=== PATIENT | male | born 1935 | race Caucasian/White ===

== ENCOUNTER 2018-10-10 11:39 | Emergency (ER) | payer OTHER ==
[~2018-10-10] VITALS: Ht 177.8 cm; Wt 90.7 kg
[~2018-10-10 11:39] MED LIST: ACETAMINOPHEN-1 EAC1 PO; ALLOPURINOL 30300 M2 PO; FLEXERIL PO; FLOMAX0.4 MG PO; GEMFIBROZIL 60600 MG PO; HYDROCODONE-APA1 TA1 PO; KLOR-CON 1010 MEQ PO; LEVOTHYROXINE0.05 MG PO; LISINOPRIL-HCT1 EACH PO; PRILOSEC20 MG PO; PRINIVIL10 MG PO; PROAIR HFA8.5 GM; SIMVASTATIN40 MG PO; TESTIM5 GM TD
[2018-10-10 14:21] VITALS: BP 146/74
== END 2018-10-10 14:22 | disposition home or self-care (01) ==
LOC: M.ERS 11:39
DX: M25.511 Pain in right shoulder (principal); I10 Essential (primary) hypertension; Z88.0 Allergy status to penicillin; Z88.5 Allergy status to narcotic agent; Z87.442 Personal history of urinary calculi

== ENCOUNTER 2021-03-08 05:38 | Emergency (ER) | payer OTHER ==
[~2021-03-08] VITALS: Ht 175.3 cm; Wt 85.7 kg
[2021-03-08 06:52] VITALS: BP 116/72
== END 2021-03-08 06:53 | disposition home or self-care (01) ==
LOC: M.ERS 05:38
DX: I83.891 Varicose veins of right lower extremity with other complications (principal); I10 Essential (primary) hypertension; Z88.0 Allergy status to penicillin; Z88.8 Allergy status to other drugs, medicaments and biological substances; Z79.899 Other long term (current) drug therapy; Z98.890 Other specified postprocedural states; Z87.442 Personal history of urinary calculi

== ENCOUNTER 2021-07-19 07:59 | Emergency (ER) | payer OTHER ==
[~2021-07-19] VITALS: Ht 177.8 cm; Wt 90.7 kg
[2021-07-19] MEDS ORDERED: DOXYCYCLINE 10100 M2 PO (11:24)
[2021-07-19 11:35] VITALS: BP 147/87
== END 2021-07-19 11:36 | disposition home or self-care (01) ==
LOC: M.ERS 07:59
DX: S02.2XXA Fracture of nasal bones, initial encounter for closed fracture (principal); S01.21XA Laceration without foreign body of nose, initial encounter; I10 Essential (primary) hypertension; Z79.899 Other long term (current) drug therapy; Z88.0 Allergy status to penicillin; W01.0XXA Fall on same level from slipping, tripping and stumbling without subsequent striking against object, initial encounter; Y93.89 Activity, other specified; Y92.89 Other specified places as the place of occurrence of the external cause; Y99.8 Other external cause status

== ENCOUNTER 2021-07-19 17:20 | Emergency (ER) | payer OTHER ==
[~2021-07-19] VITALS: Ht 177.8 cm; Wt 90.7 kg
[~2021-07-19 17:20] MED LIST changes: +DOXYCYCLINE 10100 M2 PO
[2021-07-19 17:25] VITALS: BP 162/106
== END 2021-07-19 18:14 | disposition home or self-care (01) ==
LOC: M.ERS 17:20
DX: R04.0 Epistaxis (principal); I10 Essential (primary) hypertension; Z98.890 Other specified postprocedural states; Z87.442 Personal history of urinary calculi; Z79.2 Long term (current) use of antibiotics; Z79.899 Other long term (current) drug therapy; Z88.8 Allergy status to other drugs, medicaments and biological substances; Z88.0 Allergy status to penicillin

== ENCOUNTER 2021-08-30 11:19 | Emergency (ER) | payer OTHER ==
[~2021-08-30] VITALS: Ht 177.8 cm; Wt 90.7 kg
[2021-08-30] MEDS ORDERED: TESSALON PERLE100 MG PO (13:00)
[2021-08-30 13:07] VITALS: BP 145/80
== END 2021-08-30 13:07 | disposition home or self-care (01) ==
LOC: M.ERS 11:19
DX: J40 Bronchitis, not specified as acute or chronic (principal); B34.9 Viral infection, unspecified; I10 Essential (primary) hypertension; Z79.899 Other long term (current) drug therapy; Z88.0 Allergy status to penicillin; Z88.8 Allergy status to other drugs, medicaments and biological substances